=== PATIENT | female | born 1980 | race Caucasian/White ===

== ENCOUNTER 2023-02-08 11:07 | Emergency (ER) | payer OTHER ==
[~2023-02-08] VITALS: Ht 170.2 cm; Wt 77.1 kg
[~2023-02-08 11:07] MED LIST: BENADRYL25 M1; FAMO10; FLUT1DIS2; PSEU120ER
[2023-02-08 11:41] LABS: BASOPHILS ABSOLUTE AUTO 0.04 K/mm3 (0.00-0.23); BASOPHILS PERCENT AUTO 1 % (0-2); EOSINOPHILS PERCENT AUTO 1 % (0-6); Hematocrit 43.6 % (33.0-51.0); Hemoglobin 15.5 g/dL (11.5-16.0); IMMATURE GRAN ABSOLUTE AUTO 0.06 K/mm3 (0.00-0.10); IMMATURE GRAN PERCENT AUTO 1 % (0-1); LYMPHOCYTES ABSOLUTE AUTO 1.47 K/mm3 (0.84-5.20); LYMPHOCYTES PERCENT AUTO 18 % (21-46); MONOCYTES ABSOLUTE AUTO 0.42 K/mm3 (0.16-1.47); MONOCYTES PERCENT AUTO 5 % (4-13); Mean Corpuscular HGB 31.5 pg (26.0-34.0); Mean Corpuscular HGB Conc 35.6 g/dL (31.5-36.5); Mean Corpuscular Volume 89 fL (80-100); Mean Platelet Volume 10.5 fL (9.1-12.4); NEUTROPHILS ABSOLUTE AUTO 5.95 K/mm3 (1.96-9.15); NEUTROPHILS PERCENT AUTO 74 % (41-73); Platelet Count 194 K/mm3 (150-400); RDW Coefficient Variation 11.9 % (11.7-14.2); RDW Standard Deviation 38.5 fL (35.1-46.3); Red Blood Cell Count 4.92 M/mm3 (3.80-5.20); White Blood Cell Count 8.04 K/mm3 (4.00-11.30)
[2023-02-08 12:00] VITALS: BP 119/80
[2023-02-08 12:02] LABS: Albumin, Blood 4.4 g/dL (3.4-5.0); Albumin/Globulin Ratio 1.3 (0.8-1.8); Bilirubin, Total 0.3 mg/dL (0.1-1.0); Bun/Creatinine Ratio 19.4 (12.0-20.0); Calcium, Blood 9.4 mg/dL (8.5-10.1); Creatinine, Blood 0.77 mg/dL (0.40-1.00); Globulin, Blood 3.5 g/dL (2.2-4.0); Potassium, Blood 3.9 mmol/L (3.5-5.5); Total Protein, Blood 7.9 g/dL (6.4-8.2)
[2023-02-08] MEDS ORDERED: DEXA4 PO (13:05)
== END 2023-02-08 13:15 | disposition home or self-care (01) ==
LOC: ER 11:07
PROVIDERS: Physician Assistant
DX: R06.02 Shortness of breath (principal); R20.2 Paresthesia of skin; R42 Dizziness and giddiness; L29.9 Pruritus, unspecified; Z91.030 Bee allergy status; Z91.013 Allergy to seafood; Z79.899 Other long term (current) drug therapy
CPT/HCPCS: 80053; 84703; 85025; 93005; 93010; 94640; 94664; 99285-25

== ENCOUNTER → 2023-02-11 | Outpatient (CLI) | payer OTHER ==
[~2023-02-11] MED LIST changes: +ALBU90OI INH; +DEXA4 PO; +FLUT1DIS2 INH; +PRED20 PO
== END | disposition home or self-care (01) ==
LOC: LAB 10:02 → LAB SHORT 10:02
DX: R07.89 Other chest pain (principal); R53.83 Other fatigue
CPT/HCPCS: 84443; 84484; 85379

== ENCOUNTER 2023-02-13 09:05 | Emergency (ER) | payer OTHER ==
[~2023-02-13] VITALS: Ht 160 cm; Wt 78.5 kg
[~2023-02-13 09:05] MED LIST changes: -ALBU90OI INH; -FLUT1DIS2 INH; -PRED20 PO
[2023-02-13 10:23] LABS: BASOPHILS ABSOLUTE AUTO 0.06 K/mm3 (0.00-0.23); BASOPHILS PERCENT AUTO 1 % (0-2); EOSINOPHILS PERCENT AUTO 1 % (0-6); Hematocrit 42.3 % (33.0-51.0); Hemoglobin 15.1 g/dL (11.5-16.0); IMMATURE GRAN PERCENT AUTO 2 % (0-1); LYMPHOCYTES ABSOLUTE AUTO 1.34 K/mm3 (0.84-5.20); LYMPHOCYTES PERCENT AUTO 12 % (21-46); MONOCYTES ABSOLUTE AUTO 0.93 K/mm3 (0.16-1.47); MONOCYTES PERCENT AUTO 8 % (4-13); Mean Corpuscular HGB 31.5 pg (26.0-34.0); Mean Corpuscular HGB Conc 35.7 g/dL (31.5-36.5); Mean Corpuscular Volume 88 fL (80-100); Mean Platelet Volume 10.3 fL (9.1-12.4); NEUTROPHILS ABSOLUTE AUTO 8.92 K/mm3 (1.96-9.15); NEUTROPHILS PERCENT AUTO 77 % (41-73); Platelet Count 180 K/mm3 (150-400); RDW Coefficient Variation 11.7 % (11.7-14.2); RDW Standard Deviation 37.8 fL (35.1-46.3); Red Blood Cell Count 4.79 M/mm3 (3.80-5.20); White Blood Cell Count 11.55 K/mm3 (4.00-11.30)
[2023-02-13 10:52] LABS: Albumin, Blood 3.9 g/dL (3.4-5.0); Albumin/Globulin Ratio 1.2 (0.8-1.8); Bilirubin, Total 0.3 mg/dL (0.1-1.0); Bun/Creatinine Ratio 16.8 (12.0-20.0); Creatinine, Blood 0.78 mg/dL (0.40-1.00); Globulin, Blood 3.2 g/dL (2.2-4.0); Potassium, Blood 3.8 mmol/L (3.5-5.5); Total Protein, Blood 7.1 g/dL (6.4-8.2)
[2023-02-13] MEDS ORDERED: PRED20 PO (11:14)
[2023-02-13 11:50] VITALS: BP 139/89
[2023-02-13] MEDS ORDERED: FLUT1DIS2 INH (12:54)
[2023-02-13] MEDS ORDERED: ALBU90OI INH (12:54)
== END 2023-02-13 13:25 | disposition home or self-care (01) ==
LOC: ER 09:05
PROVIDERS: Student in an Organized Health Care Education/Training Program
DX: R06.02 Shortness of breath (principal); J45.909 Unspecified asthma, uncomplicated; Z88.0 Allergy status to penicillin; Z91.013 Allergy to seafood; Z79.899 Other long term (current) drug therapy
CPT/HCPCS: 80053; 83880; 84484; 85025; 93005; 93010; 94640; 94664; 99285-25

== ENCOUNTER 2025-02-20 02:35 | Day surgery (SDC) | payer OTHER ==
[~2025-02-20 02:35] MED LIST changes: +ALBU90OI INH; +FLUT1DIS2 INH; +PRED20 PO; +Sod Ferric Gluc Complx/Sucrose 125 MG in NS 100 ML IV SCH
[2025-02-20 10:01] VITALS: BP 110/81
[2025-02-20] MEDS ORDERED: VITAMIN D33000 UNIT PO (10:17)
[2025-02-20] MEDS ORDERED: MAGNESIUM OXID500 MG PO (10:17)
[2025-02-20] MEDS ORDERED: Acerola C500 MG PO (10:17)
[2025-02-20] MEDS ORDERED: IPRATROPIUM BRO15 ML (10:18)
[2025-02-20] MEDS ORDERED: MONT10T PO (10:18)
[2025-02-20] MEDS ORDERED: BREYNA 160-4.10.3 GM INH (10:18)
== END 2025-02-20 11:06 | disposition home or self-care (01) ==
LOC: ATC 02:35
DX: E61.1 Iron deficiency (principal); R03.0 Elevated blood-pressure reading, without diagnosis of hypertension; K21.9 Gastro-esophageal reflux disease without esophagitis; J45.40 Moderate persistent asthma, uncomplicated; G62.9 Polyneuropathy, unspecified; Z87.891 Personal history of nicotine dependence; Z79.899 Other long term (current) drug therapy; Z88.0 Allergy status to penicillin; Z91.013 Allergy to seafood
CPT/HCPCS: 96365; J2916

== ENCOUNTER 2025-02-27 03:22 | Day surgery (SDC) | payer OTHER ==
[~2025-02-27 03:22] MED LIST changes: +Acerola C500 MG PO; +BREYNA 160-4.10.3 GM INH; +IPRATROPIUM BRO15 ML; +MAGNESIUM OXID500 MG PO; +MONT10T PO; +VITAMIN D33000 UNIT PO
[2025-02-27 16:09] VITALS: BP 109/79
[2025-02-27] MEDS ORDERED: FERRLECIT IV (16:09)
== END 2025-02-27 17:22 | disposition home or self-care (01) ==
LOC: ATC 03:22
DX: E61.1 Iron deficiency (principal); J45.40 Moderate persistent asthma, uncomplicated; Z79.899 Other long term (current) drug therapy; Z88.0 Allergy status to penicillin; Z91.013 Allergy to seafood; K21.9 Gastro-esophageal reflux disease without esophagitis
CPT/HCPCS: 96365; J2916

== ENCOUNTER 2025-03-06 00:39 | Day surgery (SDC) | payer OTHER ==
[~2025-03-06 00:39] MED LIST changes: +FERRLECIT IV; -Sod Ferric Gluc Complx/Sucrose 125 MG in NS 100 ML IV SCH
[2025-03-06] MEDS ORDERED: Sod Ferric Gluc Complx/Sucrose 125 MG in NS 100 ML IV SCH (01:00)
[2025-03-06 16:35] VITALS: BP 118/83
[2025-03-06] MEDS ORDERED: Deltasone 10 mg10 MG PO (16:36)
== END 2025-03-06 17:01 | disposition home or self-care (01) ==
LOC: ATC 00:39
DX: E61.1 Iron deficiency (principal); R03.0 Elevated blood-pressure reading, without diagnosis of hypertension; G60.3 Idiopathic progressive neuropathy; K21.9 Gastro-esophageal reflux disease without esophagitis; J45.40 Moderate persistent asthma, uncomplicated; Z87.891 Personal history of nicotine dependence; Z79.899 Other long term (current) drug therapy; Z88.0 Allergy status to penicillin; Z91.013 Allergy to seafood
CPT/HCPCS: 96365; J2916